=== PATIENT | female | born 1960 | race Caucasian/White ===

== ENCOUNTER 2019-11-11 14:09 | Emergency (ER) | payer BC, OTHER ==
--- NOTE | 2019-11-11 15:50 | UC ---
Complaint Female HPI - HPI Summary HPI Summary: 59 y/o female presents to the urgent care c/o voiding less that normal a few days after [place].Pt states since this time for example,"I drink a cup of water and only a half of a cup comes out." Pt denies any urinary symptoms, lower back pain, flank pain, dizziness, B/L lower leg edema, SOB, chest pain, fever, URI symptoms, abdominal pain, N/V/D. Pt states her puts the heater at a high temp every night and she sometimes sweats a lot. She would like to knoe if she has a URI. She denies vaginal discharge or H of STD's or UTI 's. - History Of Current Complaint Chief Complaint: UCGU Stated Complaint: URINARY ISSUE Time Seen by Provider: 11/11/19 15:49 Hx Obtained From: Patient Hx Last Menstrual Period: 1 year ago Onset/Duration: Gradual Onset, Lasting Weeks - 1.5 weeks, Still Present Timing: Constant Severity Initially: Mild Severity Currently: Mild Pain Intensity: 0 Pain Scale Used: 0-10 Numeric Character: Not Applicable Aggravating Factor(s): Nothing Alleviating Factor(s): Nothing Associated Signs And Symptoms: Positive: Negative. Negative: Fever, Back Pain, Vaginal Discharge, Nausea, Vomiting(# Of Episodes =) - Risk Factors Ectopic Risk Factor: Negative Ovarian Torsion Risk Factor: Negative - Allergies/Home Medications Allergies/Adverse Reactions: Allergies Allergy/AdvReac Type Severity Reaction Status Date / Time No Known Allergies Allergy Verified 11/11/19 15:07 Home Medications: Home Medications Vitamin E 200 unit PO 11/11/19 [History] PMH/Surg Hx/FS Hx/Imm Hx Previously Healthy: Yes - Pt denies PMHX - Surgical History Surgical History: None Other Surgical History: None noted - Family History Known Family History: Positive: Diabetes - Social History Occupation: Unemployed Lives: With Family Alcohol Use: None Substance Use Type: None Smoking Status (MU): Never Smoked Tobacco Have You Smoked in the Last Year: No Review of Systems All Other Systems Reviewed And Are Negative: Yes Constitutional: Positive: Negative Skin: Positive: Negative Eyes: Positive: Negative ENT: Positive: Negative Respiratory: Positive: Negative Cardiovascular: Positive: Negative Gastrointestinal: Positive: Negative Genitourinary: Positive: Other - decrease urine output Motor: Positive: Negative Neurovascular: Positive: Negative Musculoskeletal: Positive: Negative Neurological: Positive: Negative Psychological: Positive: Negative Is Patient Immunocompromised?: No Physical Exam - Summary Physical Exam Summary: VITAL SIGNS: Reviewed. GENERAL: Patient is a well developed and nourished obese female who is sitting comfortable in the examining table. Patient is not in any acute respiratory distress. HEAD AND FACE: No signs of trauma. No ecchymosis, hematomas or skull depressions. No sinus tenderness. EYES: PERRLA, EOMI x 2, No injected conjunctiva, clear watery eyes, no nystagmus. No photophobia. EARS: Hearing grossly intact. Ear canals and tympanic membranes are within normal limits. MOUTH: pharynx with no erythema, no exudates,no palatal petechiae. no B/L tonsillar enlargement Uvula in midline. NECK: Supple, trachea is midline, no lymphadenopathy, no JVD, no carotid bruit, no c-spine tenderness, neck with full ROM. CHEST: Symmetric, no tenderness at palpation LUNGS: Clear to auscultation bilaterally. No wheezing or crackles. CVS: Regular rate and rhythm, S1 and S2 present, no murmurs or gallops appreciated. ABDOMEN: Soft, non-tender. No signs of distention. No rebound no guarding, and no masses palpated. Bowel sounds are normal. BACK:no scoliosis or lesions, non tender to palpation, No B/L CVA tenderness EXTREMITIES: FROM in all major joints, no edema, no cyanosis or clubbing. NEURO: Alert and oriented x 3. No acute neurological deficits. Speech is normal and follows commands. SKIN: Dry and warm Triage Information Reviewed: Yes Vital Signs: Initial Vital Signs Temp 98.9 F 11/11/19 15:02 Pulse 78 11/11/19 15:02 Resp 18 11/11/19 15:02 BP 109/65 11/11/19 15:02 Pulse Ox 97 11/11/19 15:02 Complaint Female Dx - Course Course Of Treatment: 59 y/o female presents to the urgent care c/o voiding less that normal a few days after [place].Pt states since this time for example,"I drink a cup of water and only a half of a cup comes out." Pt denies any urinary symptoms, lower back pain, flank pain, dizziness, B/L lower leg edema, SOB, chest pain, fever, URI symptoms, abdominal pain, N/V/D. Pt states her puts the heater at a high temp every night and she sometimes sweats a lot. She would like to know if she has a URI. She denies vaginal discharge or H of STD's or UTI 's. Hx obtained. Pt is hemodyamically stable. VS: WNL. PE; WNL, UA: negative. Pt explained results and explained that it is possible she loosing water is also thorough sweat. Pt requests urine culture which was sent to lab. Pt will be notified of any abnormal results. Advised to f/u w/ her PCP of full work up since she hasn't have a physical in a long time. D/C instructions explained, Pt understood and agreed w/ plan of care. - Differential Dx/Diagnosis Differential Diagnosis/HQI/PQRI: Cervicitis, Renal Colic, Ureteral Stone, Urinary Tract Infection Provider Diagnosis: Normal exam Discharge ED - Sign-Out/Discharge Documenting (check all that apply): Patient Departure - D/c home All imaging exams completed and their final reports reviewed: No Studies - Discharge Plan Condition: Stable Disposition: HOME Patient Education Materials: Dehydration (ED) Referrals: [facility] [place] [facility] [place]] - 1 Week Additional Instructions: 1- Please increase hydration and f/u w/ your PCP for further evaluation and treatment. 2- UA was negative. Please decrease the heat at home since it is causing to sweat and that may be the cause of your sporadic decrease output - Billing Disposition and Condition Condition: STABLE Disposition: Home
[2019-11-11 17:47] VITALS: BP 109/92
--- NOTE | 2019-11-12 15:58 | UC ---
- Progress Note Progress Note: Urine culture negative. Course/Dx - Diagnoses Provider Diagnoses: Normal exam Discharge ED - Sign-Out/Discharge Documenting (check all that apply): Post-Discharge Follow Up All imaging exams completed and their final reports reviewed: No Studies - Discharge Plan Condition: Stable Disposition: HOME Patient Education Materials: Dehydration (ED) Referrals: [facility] – [place] [facility] [Outside] - 1 Week Additional Instructions: 1- Please increase hydration and f/u w/ your PCP for further evaluation and treatment. 2- UA was negative. Please decrease the heat at home since it is causing to sweat and that may be the cause of your sporadic decrease output - Billing Disposition and Condition Condition: STABLE Disposition: Home
== END 2019-11-11 17:25 | disposition home or self-care (01) ==
LOC: UCEAST 14:09
DX: R39.89 Other symptoms and signs involving the genitourinary system (principal)
CPT/HCPCS: 81003; 87086; 99201; G0463